=== PATIENT | female | born 1985 | race African-American/Black ===

== ENCOUNTER 2017-09-19 17:03 | Emergency (ER) | payer MEDICAID, OTHER ==
[~2017-09-19] VITALS: Ht 170.2 cm; Wt 62.2 kg
[2017-09-19 17:16] VITALS: BP 103/68
[2017-09-19 18:36] LABS: CLARITY URINE CLOUDY (CLEAR); COLOR URINE DARK YELLOW (YELLOW); KETONES URINE TRACE (NEGATIVE); LEUKOCYTE ESTERASE URINE 2+ (NEGATIVE); NITRITE URINE POSITIVE (NEGATIVE); OCCULT BLOOD URINE NEGATIVE (NEGATIVE); PROTEIN URINE TRACE (NEGATIVE); SPECIFIC GRAVITY URINE 1.029 (1.005-1.030)
== END 2017-09-19 22:27 | disposition left against medical advice (07) ==
LOC: ER 18:27
DX: R30.0 Dysuria (principal); R10.30 Lower abdominal pain, unspecified; J45.909 Unspecified asthma, uncomplicated; F17.200 Nicotine dependence, unspecified, uncomplicated
CPT/HCPCS: 81003; 81025; 99283

== ENCOUNTER 2017-10-08 23:58 | Emergency (ER) | payer SELFPAY ==
[~2017-10-08] VITALS: Ht 170.2 cm; Wt 59.0 kg
[2017-10-09] MEDS ORDERED: METOCLOPRAMIDE HCL 10MG/2ML VIAL IV ONE (00:30)
[2017-10-09] MEDS ORDERED: DIPHENHYDRAMINE 50MG/ML VIAL IV ONE (00:30)
[2017-10-09] MEDS ORDERED: MAGNESIUM/ALUMINUM HYDROXIDE/SIMETHICONE 30ML UDC PO STA (00:49)
[2017-10-09 01:11] LABS: BASOPHILS % 1.2 % (0.0-2.0); HEMATOCRIT. 22.9 % (36.0-48.0); MEAN CORPUSCULAR HEMOGLOBIN 20.4 pg (28.0-32.0); MEAN CORPUSCULAR VOLUME 67.9 fL (81.0-99.0); MEAN PLATELET VOLUME 8.5 fl (7.4-10.4); MONOCYTES % 11.5 % (2.0-8.0); NEUTROPHILS % 35.3 % (40.0-76.0); PLATELET 99 x1000/uL (130-400); RED BLOOD CELL COUNT 3.38 mill/uL (4.2-5.4)
[2017-10-09 01:13] LABS: CHLORIDE 103 mEq/L (98-107); HEMOGLOBIN. 6.9 g/dL (12.0-16.0)
[2017-10-09 01:30] LABS: PLATELET ESTIMATE DECREASED
[2017-10-09 04:39] VITALS: BP 111/69
== END 2017-10-09 12:17 | disposition home or self-care (01) ==
LOC: ER 10-09 07:55
DX: K29.70 Gastritis, unspecified, without bleeding (principal); D64.9 Anemia, unspecified; J45.909 Unspecified asthma, uncomplicated; K76.0 Fatty (change of) liver, not elsewhere classified; F17.200 Nicotine dependence, unspecified, uncomplicated
CPT/HCPCS: 36415; 76705; 80053; 81025; 83690; 84484; 85025; 93005; 99285; Z7610

== ENCOUNTER 2017-12-26 16:24 | Emergency (ER) | payer MEDICAID ==
[~2017-12-26] VITALS: Ht 170.2 cm; Wt 60.0 kg
[2017-12-26 16:50] VITALS: BP 104/74
== END 2017-12-26 20:00 | disposition left against medical advice (07) ==
LOC: ER 16:24
DX: R11.0 Nausea (principal); Z53.21 Procedure and treatment not carried out due to patient leaving prior to being seen by health care provider

== ENCOUNTER 2019-06-05 19:24 | Emergency (ER) | payer MEDICAID ==
[~2019-06-05] VITALS: Ht 165.1 cm; Wt 61.0 kg
[2019-06-05 19:25] VITALS: BP 131/93
== END 2019-06-05 20:30 | disposition home or self-care (01) ==
LOC: ER 19:24
DX: H72.90 Unspecified perforation of tympanic membrane, unspecified ear (principal); J45.909 Unspecified asthma, uncomplicated; R56.9 Unspecified convulsions; F84.0 Autistic disorder; E11.9 Type 2 diabetes mellitus without complications
CPT/HCPCS: 99281

== ENCOUNTER 2019-11-21 13:25 | Inpatient (IN) | payer MEDICAID ==
[~2019-11-21] VITALS: Ht 170.2 cm; Wt 59.9 kg
[2019-11-21] MEDS ORDERED: SODIUM CHLORIDE 0.9% 1,000 ML IV ONE ×2 (14:01→15:45)
[2019-11-21] MEDS ORDERED: MORPHINE SULFATE 4 MG/ML CPJ (NOT FOR IM USE) IV STA (14:01)
[2019-11-21] MEDS ORDERED: ONDANSETRON HCL 4MG/2ML INJ IV STA (14:01)
[2019-11-21 14:27] LABS: HEMATOCRIT. 35.5 % (36.0-48.0); HEMOGLOBIN. 11.2 g/dL (12.0-16.0); MEAN CORPUSCULAR HEMOGLOBIN 20.6 pg (28.0-32.0); MEAN CORPUSCULAR VOLUME 65.1 fL (81.0-99.0); MEAN PLATELET VOLUME 8.9 fl (7.4-10.4); PLATELET 576 x1000/uL (130-400); RED BLOOD CELL COUNT 5.45 mill/uL (4.2-5.4); RED CELL DISTRIBUTION WIDTH 22.2 % (11.6-14.6)
[2019-11-21 14:32] LABS: CHLORIDE 86 mEq/L (98-107)
[2019-11-21 14:42] LABS: INR 1.1; PROTHROMBIN TIME 11.4 sec (9.6-11.0)
[2019-11-21 15:21] LABS: PLATELET ESTIMATE INCREASED
[2019-11-21] MEDS ORDERED: MORPHINE SULFATE 4 MG/ML CPJ (NOT FOR IM USE) IV ONE ×2 (15:45→18:00)
[2019-11-21 15:59] LABS: CLARITY URINE CLOUDY (CLEAR); COLOR URINE YELLOW (YELLOW); KETONES URINE 1+ (NEGATIVE); LEUKOCYTE ESTERASE URINE NEGATIVE (NEGATIVE); NITRITE URINE NEGATIVE (NEGATIVE); OCCULT BLOOD URINE NEGATIVE (NEGATIVE); PROTEIN URINE 3+ (NEGATIVE); SPECIFIC GRAVITY URINE 1.022 (1.005-1.030)
[2019-11-21 16:12] LABS: *BARBITURATES SCREEN URINE NEGATIVE (NEGATIVE)
[2019-11-21 16:14] LABS: *AMPHETAMINES SCREEN URINE NEGATIVE (NEGATIVE); *BENZODIAZEPINES SCREEN URINE NEGATIVE (NEGATIVE); *COCAINE SCREEN URINE NEGATIVE (NEGATIVE); CANNABINOID URINE SCREEN NEGATIVE (NEGATIVE); METHADONE URINE SCREEN NEGATIVE (NEGATIVE); PHENCYCLIDINE URINE SCREEN NEGATIVE (NEGATIVE)
[2019-11-21 16:20] LABS: OPIATES URINE SCREEN PRESUMTIVE POSITIVE (NEGATIVE)
[2019-11-21] MEDS ORDERED: KCL 20MEQ/100ML PREMIX 100 ML IV ONE (18:00)
[2019-11-21] MEDS ORDERED: DEXT 5%/0.45% NACL KCL 20MEQ/L 1,000 ML IV ONE (18:00)
[2019-11-21 21:36] VITALS: BP 140/90
[2019-11-21] MEDS ORDERED: ONDANSETRON HCL 4MG/2ML INJ IV PRN (22:45)
[2019-11-21 23:25] VITALS: BP 140/90
[2019-11-22] VITALS: BP 123/76
[2019-11-22] MEDS: ACETAMINOPHEN 325MG TABLET PO PRN ×2 (00:06→09:54)
[2019-11-22] MEDS ORDERED: IBUP-2028 MT (00:17)
[2019-11-22] MEDS ORDERED: ASCO500C18 MT (00:17)
[2019-11-22 04:00] VITALS: BP 110/73
[2019-11-22 07:57] LABS: CREATINE KINASE 250 IU/L (26-192)
[2019-11-22 07:58] LABS: CREATINE KINASE MB FRACTION 2.1 ng/mL (0.5-3.6)
[2019-11-22 10:16] LABS: CHLORIDE 94 mEq/L (98-107)
[2019-11-22] MEDS ORDERED: TOPUD PO (12:43)
[2019-11-22] MEDS ORDERED: POTASSIUM CHLORIDE 20MEQ TABLET SR PO NR (12:45)
== END 2019-11-22 14:05 | disposition home or self-care (01) | DRG 563 ==
LOC: ER 13:25 → 6WST 18:02 → ENRESERV 18:42 → CANRESERV 18:42 → EDBEDREQSVC 18:46 → EDBEDREQTM 19:31 → ENRESERV 20:11
PROVIDERS: ADMIT Internal Medicine; ATTEND Internal Medicine
DX: O20.0 Threatened abortion (principal); N94.6 Dysmenorrhea, unspecified; E88.89 Other specified metabolic disorders; E87.6 Hypokalemia; E86.1 Hypovolemia; F10.21 Alcohol dependence, in remission; D50.9 Iron deficiency anemia, unspecified; Z82.49 Family history of ischemic heart disease and other diseases of the circulatory system; Z87.19 Personal history of other diseases of the digestive system; Z90.49 Acquired absence of other specified parts of digestive tract
CPT/HCPCS: 36415; 71045; 76801; 80048; 80053; 80305; 81003; 82550; 82553; 84484; 84702; 85025; 86850; 86900; 93005; 99285; J2270; J2405; J3480; J7030

== ENCOUNTER 2019-12-09 09:24 | Emergency (ER) | payer MEDICAID ==
[~2019-12-09] VITALS: Ht 165.1 cm; Wt 58.0 kg
[~2019-12-09 09:24] MED LIST: ASCO500C18 MT; TOPUD PO
[2019-12-09] MEDS ORDERED: IBUPROFEN 600MG TABLET PO ONE (09:45)
[2019-12-09 11:46] VITALS: BP 119/79
== END 2019-12-09 11:48 | disposition home or self-care (01) ==
LOC: ER 09:24
DX: S99.822A Other specified injuries of left foot, initial encounter (principal); F17.210 Nicotine dependence, cigarettes, uncomplicated; Z59.0 Homelessness; Z91.010 Allergy to peanuts; W22.8XXA Striking against or struck by other objects, initial encounter; Y93.89 Activity, other specified; Y92.488 Other paved roadways as the place of occurrence of the external cause
CPT/HCPCS: 73630; 99283

== ENCOUNTER 2021-07-03 00:07 | Inpatient (IN) | payer MEDICAID ==
[2021-07-03] VITALS (36 sets, daily range): BP systolic 35–121; BP diastolic 21–82
[~2021-07-03] VITALS: Ht 167.6 cm; Wt 93.9 kg
[~2021-07-03 00:07] MED LIST changes: -ASCO500C18 MT; +AZAT50TA24 PO; +BECL10.6 INH; +CELE200C PO; +DILT120C88 PO; +FAMO20TA8 PO; +FOLI-43 PO; +FURO20TA4 PO; +HYDR200T35 PO; +MELA5TAB19 MT; +METF-873 MT; +P20 PO; -TOPUD PO
[2021-07-03] MEDS ORDERED: ACETAMINOPHEN 325MG TABLET PO STA (00:17)
[2021-07-03] MEDS ORDERED: KETOROLAC 30MG/ML VIAL IV STA (00:17)
[2021-07-03] MEDS ORDERED: SODIUM CHLORIDE 0.9% 1000ML BAG (SEPSIS BOLUS) IV ONE (00:30)
[2021-07-03] MEDS ORDERED: PIPERACILLIN/TAZ 3.375G PREMIX 50 ML IV ONE (00:30)
[2021-07-03] MEDS ORDERED: HYDROCORTISONE SOD SUCCINATE 100 MG/2 ML VIAL IV ONE (00:30)
[2021-07-03] MEDS ORDERED: VANCOMYCIN 1G PREMIX 200 ML IV ONE (00:30)
[2021-07-03 00:47] LABS: HEMATOCRIT. 28.7 % (36.0-48.0); HEMOGLOBIN. 8.3 g/dL (12.0-16.0); MEAN CORPUSCULAR HEMOGLOBIN 22.4 pg (28.0-32.0); MEAN CORPUSCULAR VOLUME 77.2 fL (81.0-99.0); MEAN PLATELET VOLUME 7.5 fl (7.4-10.4); PLATELET 180 x1000/uL (130-400); RED BLOOD CELL COUNT 3.71 mill/uL (4.2-5.4); RED CELL DISTRIBUTION WIDTH 24.1 % (11.6-14.6)
[2021-07-03 00:57] LABS: CHLORIDE 109 mEq/L (98-107)
[2021-07-03] MEDS ORDERED: DEXTROSE 50% WATER 50ML SYRINGE IV SCH (01:00)
[2021-07-03] MEDS ORDERED: DIGOXIN 500MCG/2ML AMP IV ONE (01:00)
[2021-07-03 01:06] LABS: CREATINE KINASE 47 IU/L (26-192)
[2021-07-03] MEDS ORDERED: DOBUTAMINE 500MG PREMIX 250 ML IV PRN ×2 (01:15→03:30)
[2021-07-03] MEDS ORDERED: FUROSEMIDE 100MG/10ML VIAL IVP SCH (01:15)
[2021-07-03] MEDS ORDERED: DIGOXIN 500MCG/2ML AMP IV SCH (04:30)
[2021-07-03 07:41] LABS: NUCLEATED RED BLOOD CELLS 44 /100 WBC; PLATELET ESTIMATE NORMAL
[2021-07-03] MEDS ORDERED: ACETAMINOPHEN 325MG TABLET PO PRN (09:00)
[2021-07-03] MEDS ORDERED: ONDANSETRON HCL 4MG/2ML INJ IV PRN (09:00)
[2021-07-03] MEDS ORDERED: SODIUM CHLORIDE 0.9% 500 ML IV ONE (09:00)
[2021-07-03] MEDS ORDERED: PHENYLEPHRINE 50 MG in DEXT 5% WATER 245 ML IV PRN ×2 (09:00→09:45)
[2021-07-03] MEDS ORDERED: EPINEPHRINE 0.1MG/ML (1:10,000) 10ML SYR ONE (09:07)
[2021-07-03] MEDS ORDERED: DEXTROSE 50% WATER 50ML SYRINGE IV ONE (09:07)
[2021-07-03] MEDS ORDERED: CALCIUM CHLORIDE 1GM/10ML SYR IV ONE (09:07)
[2021-07-03] MEDS ORDERED: SODIUM BICARBONATE 8.4% 1 MEQ/ML 50ML SYR IV ONE (09:07)
[2021-07-03] MEDS ORDERED: ATROPINE SULFATE 1MG/10ML SYR ONE (09:07)
[2021-07-03] MEDS: DEXT 5%/0.45% NACL 1000ML 1,000 ML IV SCH ×2 (09:33→15:46)
[2021-07-03] MEDS ORDERED: PROPOFOL 10MG/ML 100ML 100 ML IV ONE (12:45)
[2021-07-03 13:29] LABS: BG BASE EXCESS -16.2 mmol/L (-2.0-2.0); BG DEOXYHEMOGLOBIN 0.3 % (0.0-5.0); BG FRACTION INSPIRED OXYGEN 100; BG HCO3 ACT 11.8 mmol/L (22.0-26.0); BG METHEMOGLOBIN 0.3 % (0.0-1.5); BG OXYGEN SATURATION 99.7 % (92.0-98.5); BG OXYHEMOGLOBIN 98.4 % (94.0-97.0); BG PCO2 37.1 mmHg (35.0-45.0); BG PH 7.121 (7.350-7.450); BG SAMPLE SITE RIGHT BRACHIAL; BG TOTAL HEMOGLOBIN 7.7 g/dL (12.0-18.0); BG VENT MODE VENT - AC
[2021-07-03] MEDS ORDERED: NOREPINEPHRINE 8MG/250ML PMX 250 ML IV ONE (14:00)
[2021-07-03] MEDS ORDERED: NOREPINEPHRINE 8 MG in DEXTROSE 5% WATER 250 ML IV PRN (14:00)
[2021-07-03] MEDS ORDERED: SODIUM BICARBONATE 8.4% 1 MEQ/ML 50ML SYR IV NR ×4 (15:00→23:09)
[2021-07-03 15:50] LABS: HEMATOCRIT. 24.2 % (36.0-48.0); MEAN CORPUSCULAR HEMOGLOBIN 22.7 pg (28.0-32.0); MEAN CORPUSCULAR VOLUME 80.5 fL (81.0-99.0); MEAN PLATELET VOLUME 8.4 fl (7.4-10.4); PLATELET 95 x1000/uL (130-400); RED BLOOD CELL COUNT 3.01 mill/uL (4.2-5.4); RED CELL DISTRIBUTION WIDTH 26.1 % (11.6-14.6)
[2021-07-03] MEDS: NOREPINEPHRINE 32 MG in DEXT 5% WATER 218 ML IV PRN ×2 (15:58→22:11)
[2021-07-03 16:05] LABS: HEMOGLOBIN. 6.8 g/dL (12.0-16.0)
[2021-07-03 16:18] LABS: BG BASE EXCESS -17.4 mmol/L (-2.0-2.0); BG DEOXYHEMOGLOBIN 0.3 % (0.0-5.0); BG FRACTION INSPIRED OXYGEN 100; BG HCO3 ACT 11.1 mmol/L (22.0-26.0); BG METHEMOGLOBIN 0.6 % (0.0-1.5); BG OXYGEN SATURATION 99.7 % (92.0-98.5); BG OXYHEMOGLOBIN 98.1 % (94.0-97.0); BG PCO2 37.5 mmHg (35.0-45.0); BG PH 7.089 (7.350-7.450); BG PO2 363.4 mmHg (75.0-100.0); BG SAMPLE SITE RIGHT RADIAL; BG TOTAL HEMOGLOBIN 7.6 g/dL (12.0-18.0); BG VENT MODE VENT - AC
[2021-07-03] MEDS ORDERED: PROPOFOL 10MG/ML 100ML 100 ML IV PRN (16:30)
[2021-07-03] MEDS: PIPERACILLIN/TAZOBACTAM 3.375 G in DEXTROSE 5% WATER 50 ML IV SCH ×3 (17:19→22:20)
[2021-07-03] MEDS: PHENYLEPHRINE 100 MG in DEXT 5% WATER 240 ML IV PRN (17:20)
[2021-07-03 17:22] LABS: NUCLEATED RED BLOOD CELLS 164 /100 WBC; PLATELET ESTIMATE DECREASED
[2021-07-03] MEDS: SODIUM BICARBONATE 200 MEQ in DEXTROSE 5% WATER 1,000 ML IV SCH (17:22)
[2021-07-03] MEDS ORDERED: VANCOMYCIN 1250MG in DEXTROSE 5% WATER 250ML IV NR (18:00)
[2021-07-03 18:09] LABS: BG BASE EXCESS -15.7 mmol/L (-2.0-2.0); BG CARBOXYHEMOGLOBIN 0.9 % (0.5-1.5); BG FRACTION INSPIRED OXYGEN 100; BG HCO3 ACT 11.9 mmol/L (22.0-26.0); BG METHEMOGLOBIN 0.4 % (0.0-1.5); BG OXYHEMOGLOBIN 98.7 % (94.0-97.0); BG PH 7.149 (7.350-7.450); BG PO2 409.7 mmHg (75.0-100.0); BG SAMPLE SITE LEFT FEMORAL; BG VENT MODE VENT - AC
[2021-07-03] MEDS ORDERED: FENTANYL 2500MCG/250ML PMX 250 ML IV PRN (18:30)
[2021-07-03 21:40] LABS: BG BASE EXCESS -13.4 mmol/L (-2.0-2.0); BG CARBOXYHEMOGLOBIN 0.2 % (0.5-1.5); BG DEOXYHEMOGLOBIN 30.2 % (0.0-5.0); BG FRACTION INSPIRED OXYGEN 100; BG METHEMOGLOBIN 0.5 % (0.0-1.5); BG OXYGEN SATURATION 69.6 % (92.0-98.5); BG OXYHEMOGLOBIN 69.1 % (94.0-97.0); BG PCO2 57.1 mmHg (35.0-45.0); BG PH 7.066 (7.350-7.450); BG PO2 49.5 mmHg (75.0-100.0); BG SAMPLE SITE RIGHT BRACHIAL; BG TOTAL HEMOGLOBIN 7.7 g/dL (12.0-18.0); BG TOTAL RESPIRATORY RATE 26 b/min; BG VENT MODE VENT - AC
[2021-07-03] MEDS: METHYLPREDNISOLONE SOD SUCC 40 MG/ML VIAL IV SCH (22:02)
[2021-07-03] MEDS: VASOPRESSIN 20 UNIT in SODIUM CHLORIDE 0.9% 99 ML IV PRN (22:07)
[2021-07-04] VITALS (36 sets, daily range): BP systolic 41–128; BP diastolic 17–72
[2021-07-04] MEDS ORDERED: ALBUMIN HUMAN 25GM/500ML (5%) IV SCH (01:00)
[2021-07-04] MEDS ORDERED: DEXTROSE 50% WATER 50ML SYRINGE IV PRN (01:15)
[2021-07-04] MEDS: DEXTROSE 50% WATER 50ML SYRINGE IV PRN ×3 (01:25→06:23)
[2021-07-04] MEDS: PHENYLEPHRINE 100 MG in DEXT 5% WATER 240 ML IV PRN ×3 (01:51→09:14)
[2021-07-04 02:24] LABS: BG BASE EXCESS -22.7 mmol/L (-2.0-2.0); BG CARBOXYHEMOGLOBIN 0.8 % (0.5-1.5); BG DEOXYHEMOGLOBIN 0.2 % (0.0-5.0); BG FRACTION INSPIRED OXYGEN 100; BG HCO3 ACT 7.1 mmol/L (22.0-26.0); BG METHEMOGLOBIN 0.3 % (0.0-1.5); BG OXYGEN SATURATION 99.8 % (92.0-98.5); BG OXYHEMOGLOBIN 98.7 % (94.0-97.0); BG PCO2 30.1 mmHg (35.0-45.0); BG PH 6.988 (7.350-7.450); BG PO2 291.2 mmHg (75.0-100.0); BG SAMPLE SITE RIGHT BRACHIAL; BG TOTAL HEMOGLOBIN 7.7 g/dL (12.0-18.0); BG TOTAL RESPIRATORY RATE 26 b/min; BG VENT MODE VENT - AC
[2021-07-04] MEDS ORDERED: SODIUM BICARBONATE 8.4% 1 MEQ/ML 50ML SYR IV SCH ×2 (03:30→09:00)
[2021-07-04] MEDS: METHYLPREDNISOLONE SOD SUCC 40 MG/ML VIAL IV SCH (04:04)
[2021-07-04] MEDS: NOREPINEPHRINE 32 MG in DEXT 5% WATER 218 ML IV PRN ×2 (04:34→09:14)
[2021-07-04] MEDS ORDERED: INSULIN LISPRO 100 UNITS/ML SUBCUT SCH (06:00)
[2021-07-04] MEDS ORDERED: BLOOD SUGAR DIAGNOSTIC STRIP TEST SCH (06:00)
[2021-07-04] MEDS ORDERED: VANCOMYCIN 750 MG in DEXT 5% WATER 250 ML IV SCH (06:00)
[2021-07-04] MEDS: PIPERACILLIN/TAZOBACTAM 3.375 G in DEXTROSE 5% WATER 50 ML IV SCH (06:21)
[2021-07-04] MEDS: VASOPRESSIN 20 UNIT in SODIUM CHLORIDE 0.9% 99 ML IV PRN (06:25)
[2021-07-04 07:07] LABS: PHOSPHORUS 15.5 mg/dL (2.5-4.9)
[2021-07-04] MEDS ORDERED: LIDOCAINE HCL 1% 10 MG/ML 10ML VIAL ONE (08:21)
[2021-07-04] MEDS ORDERED: CALCIUM GLUCONATE 1GM PREMIX 50 ML IV SCH (09:00)
[2021-07-04] MEDS ORDERED: DEXTROSE 50% WATER 50ML SYRINGE IV SCH (09:00)
[2021-07-04] MEDS ORDERED: PNEUMOCOCCAL 23-VAL P-SAC VAC 0.5 ML IM ONE (09:00)
[2021-07-04] MEDS ORDERED: INSULIN REGULAR (HUMULIN R) 300UNITS/3ML VIAL IV SCH (09:00)
[2021-07-04] MEDS ORDERED: INFLUENZA VACCINE 05/PF 0.5 ML SYRINGE IM ONE (09:00)
[2021-07-04] MEDS ORDERED: DEXTROSE 50% WATER 50ML SYRINGE IV ONE (09:08)
[2021-07-04] MEDS ORDERED: SODIUM BICARBONATE 8.4% 1 MEQ/ML 50ML SYR IV ONE (09:08)
[2021-07-04] MEDS ORDERED: EPINEPHRINE 0.1MG/ML (1:10,000) 10ML SYR ONE (09:08)
[2021-07-04] MEDS ORDERED: CALCIUM CHLORIDE 1GM/10ML SYR IV ONE (09:08)
[2021-07-04] MEDS ORDERED: ATROPINE SULFATE 1MG/10ML SYR ONE (09:08)
[2021-07-04] MEDS: SODIUM BICARBONATE 200 MEQ in DEXTROSE 5% WATER 1,000 ML IV SCH (09:14)
[2021-07-04 09:24] LABS: MEAN CORPUSCULAR HEMOGLOBIN 24.6 pg (28.0-32.0); MEAN CORPUSCULAR VOLUME 98.3 fL (81.0-99.0); MEAN PLATELET VOLUME 9.3 fl (7.4-10.4); RED BLOOD CELL COUNT 1.25 mill/uL (4.2-5.4); RED CELL DISTRIBUTION WIDTH 26.4 % (11.6-14.6)
[2021-07-04 09:41] LABS: PLATELET 23 x1000/uL (130-400)
[2021-07-04 09:43] LABS: HEMATOCRIT. 12.3 % (36.0-48.0); HEMOGLOBIN. 3.1 g/dL (12.0-16.0)
[2021-07-04] MEDS ORDERED: DOPAMINE 800MG/500ML PREMIX 500 ML IV PRN (09:45)
[2021-07-04] MEDS ORDERED: DOPAMINE 800MG PREMIX (DOUBLE) 250 ML IV PRN (09:45)
[2021-07-04 10:46] LABS: BG FRACTION INSPIRED OXYGEN 100; BG PCO2 60.8 mmHg (35.0-45.0); BG PH 6.834 (7.350-7.450); BG PO2 40.8 mmHg (75.0-100.0); BG SAMPLE SITE RIGHT FEMORAL; BG TOTAL HEMOGLOBIN < 4.5 g/dL (12.0-18.0); BG VENT MODE VENT - AC
[2021-07-04] MEDS ORDERED: MEROPENEM 1,000 MG in SODIUM CHLORIDE 0.9% 100 ML IV SCH (13:00)
[2021-07-04 13:50] LABS: NUCLEATED RED BLOOD CELLS 88 /100 WBC; PLATELET ESTIMATE MARKEDLY DECREASED
== END 2021-07-04 10:37 | DRG 720 ==
LOC: ER 00:07 → CVICU 02:10 → ENRESERV 12:00
PROVIDERS: ADMIT Internal Medicine; ATTEND Internal Medicine
PROC: 5A1935Z Respiratory Ventilation, Less than 24 Consecutive Hours (ICD-10-PCS; principal; 2021-07-03)
PROC: 5A12012 Performance of Cardiac Output, Single, Manual (ICD-10-PCS; 2021-07-03)
PROC: 02HV33Z Insertion of Infusion Device into Superior Vena Cava, Percutaneous Approach (ICD-10-PCS; 2021-07-03)
PROC: 30233N1 Transfusion of Nonautologous Red Blood Cells into Peripheral Vein, Percutaneous Approach (ICD-10-PCS; 2021-07-03)
PROC: 0BH17EZ Insertion of Endotracheal Airway into Trachea, Via Natural or Artificial Opening (ICD-10-PCS; 2021-07-03)
DX: A41.9 Sepsis, unspecified organism (principal); I46.9 Cardiac arrest, cause unspecified; J96.01 Acute respiratory failure with hypoxia; R65.21 Severe sepsis with septic shock; E43 Unspecified severe protein-calorie malnutrition; D61.818 Other pancytopenia; J18.9 Pneumonia, unspecified organism; E11.649 Type 2 diabetes mellitus with hypoglycemia without coma; I27.20 Pulmonary hypertension, unspecified; Z20.822 Contact with and (suspected) exposure to COVID-19; I27.81 Cor pulmonale (chronic); F25.9 Schizoaffective disorder, unspecified; M32.9 Systemic lupus erythematosus, unspecified; G40.909 Epilepsy, unspecified, not intractable, without status epilepticus; J45.909 Unspecified asthma, uncomplicated; E66.01 Morbid (severe) obesity due to excess calories; D50.9 Iron deficiency anemia, unspecified; I36.1 Nonrheumatic tricuspid (valve) insufficiency; I10 Essential (primary) hypertension; F10.10 Alcohol abuse, uncomplicated; Y90.9 Presence of alcohol in blood, level not specified; Z91.010 Allergy to peanuts; Z79.899 Other long term (current) drug therapy; Z79.84 Long term (current) use of oral hypoglycemic drugs; Z82.49 Family history of ischemic heart disease and other diseases of the circulatory system; Z68.33 Body mass index [BMI] 33.0-33.9, adult; Z83.3 Family history of diabetes mellitus
CPT/HCPCS: 36415; 36600; 71045; 80048; 80053; 82375; 82550; 82805; 82962; 83605; 83735; 83880; 84100; 84145; 84478; 84484; 85025; 86850; 86900; 86920; 87070; 87077; 87186; 87426; 92950; 93005; 93970; 94002; 94003; 99291; J0461; J0610; J1160; J1250; J1265; J1720; J1815; J1885; J1940; J2185; J2370; J2543; J2704; J2920; J3370; J3490; J7030; J7040; J7050; J7060; J7070; P9016; P9041; A4315